=== PATIENT | female | born 1955 | race African-American/Black ===

== ENCOUNTER 2016-11-16 07:40 | Day surgery (SDC) | payer MEDICAID ==
[2016-11-16] MEDS ORDERED: COR3 PO (09:34)
[2016-11-16] MEDS ORDERED: ATROV IH (09:34)
[2016-11-16] MEDS ORDERED: LISI40TA4 PO (09:34)
[2016-11-16] MEDS ORDERED: SIMV20TA6 PO (09:34)
[2016-11-16] MEDS ORDERED: FURO40TA5 PO (09:34)
[2016-11-16] MEDS ORDERED: ALBU18HF2 IH (09:34)
[2016-11-16] MEDS ORDERED: ACET650S22 PO (09:34)
[2016-11-16] MEDS ORDERED: METO50TA5 PO (09:34)
[2016-11-16] MEDS ORDERED: ASPI-1159 PO (09:34)
[2016-11-16] MEDS ORDERED: LIDOCAINE HCL 1% 20ML VIAL (Pyxis) INJ ONE (11:02)
[2016-11-16] MEDS ORDERED: IOHEXOL-300 100 ML BOTTLE ONE (11:02)
[2016-11-16] MEDS ORDERED: FENTANYL CITRATE/PF 50MCG/ML 2ML VIAL ONE (11:16)
[2016-11-16] MEDS ORDERED: MIDAZOLAM HCL 2 MG/2 ML VIAL ONE (11:16)
[2016-11-16] MEDS ORDERED: NICARDIPINE 100MCG/ML 10ML VIAL (CATH LAB) IV ONE (11:20)
[2016-11-16] MEDS ORDERED: NITROGLYCERIN 50MCG/ML 10ML VIAL (CATH LAB) IV ONE (11:20)
[2016-11-16] MEDS ORDERED: HEPARIN SODIUM 1,000 UNIT/1ML VIAL IV ONE (12:00)
[2016-11-16] MEDS ORDERED: ONDANSETRON HCL 4MG/2ML VIAL IV PRN (12:00)
[2016-11-16] MEDS ORDERED: MORPHINE SULFATE 2 MG/ML CPJ (NOT FOR IM USE) IV PRN (12:00)
[2016-11-16] MEDS ORDERED: CARVEDILOL 3.125 MG TABLET PO SCH (17:00)
[2016-11-17] MEDS ORDERED: ACETAMINOPHEN 650MG/20.3ML UDC PO SCH (09:00)
[2016-11-17] MEDS ORDERED: FUROSEMIDE 40MG TABLET PO SCH (09:00)
[2016-11-17] MEDS ORDERED: LISINOPRIL 40MG TABLET PO SCH (09:00)
[2016-11-17] MEDS ORDERED: ASPIRIN 81MG EC TABLET PO SCH (09:00)
[2016-11-17] MEDS ORDERED: METOPROLOL TARTRATE 50MG TABLET PO SCH (09:00)
== END 2016-11-16 14:15 | disposition home or self-care (01) ==
LOC: CCL 07:40
PROVIDERS: ATTEND Specialist
DX: I42.9 Cardiomyopathy, unspecified (principal); I11.0 Hypertensive heart disease with heart failure; I50.9 Heart failure, unspecified; J44.9 Chronic obstructive pulmonary disease, unspecified; F41.9 Anxiety disorder, unspecified; E78.5 Hyperlipidemia, unspecified; E11.9 Type 2 diabetes mellitus without complications; Z95.810 Presence of automatic (implantable) cardiac defibrillator; F32.9 Major depressive disorder, single episode, unspecified
CPT/HCPCS: 93458; 99152; C1769; C1893; J1644; J2250; J3010; J3490; Q9967